=== PATIENT | male | born 1975 | race African-American/Black ===

== ENCOUNTER 2021-05-02 16:16 | Emergency (ER) | payer SELFPAY ==
[~2021-05-02] VITALS: Ht 182.9 cm; Wt 90.0 kg
[2021-05-02 20:39] VITALS: BP 147/101
[2021-05-02] MEDS ORDERED: INSULIN REGULAR (HUMULIN R) 300UNITS/3ML VIAL IV ONE ×2 (21:45→22:30)
[2021-05-02] MEDS ORDERED: SODIUM CHLORIDE 0.9% 1,000 ML IV ONE (21:45)
[2021-05-02] MEDS ORDERED: METF-414 MT (22:22)
[2021-05-02] MEDS ORDERED: METFORMIN HCL 500MG TABLET PO ONE (23:00)
== END 2021-05-02 23:28 | disposition home or self-care (01) ==
LOC: ER 16:16
DX: E11.65 Type 2 diabetes mellitus with hyperglycemia (principal); Z79.4 Long term (current) use of insulin; Z88.8 Allergy status to other drugs, medicaments and biological substances; Z79.899 Other long term (current) drug therapy
CPT/HCPCS: 82962; 96374; 99283; J1815; J7030